=== PATIENT | male | born 1955 | race Caucasian/White ===

== ENCOUNTER → 2020-01-07 | Outpatient (CLI) | payer MEDICARE ==
--- NOTE | 2020-01-07 14:40 | Diagnostic Imaging Report ---
EXAMINATION: Right forearm at 01:14 p.m. INDICATION: Forearm pain. FINDINGS: AP and lateral views were obtained. There are no prior studies available for comparison. There is no fracture, dislocation, or acute bony abnormality evident. 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 There also appear to be a few minute radiopaque foreign bodies in the soft tissues along the volar aspect of the distal forearm. Furthermore, the lateral view does show a 0.8 x 3.4 cm soft tissue bulge along the posterior aspect of the proximal ulna. There is a similar-appearing 0.9 x 3.6 cm bulge along the posterior aspect of the olecranon process of the ulna. These soft tissue findings are not particularly well visualized on the AP view. If further study is desired, then I would recommend ultrasound be performed. There is no other soft tissue abnormality noted. IMPRESSION: 1. There is no evidence for an acute bony abnormality. 2. There are two minute radiopaque foreign bodies in the soft tissues along the volar aspect of the distal forearm. 3. The soft tissue nodular densities along the posterior aspect of the proximal forearm are of uncertain etiology. Ultrasound would be recommended to better characterize these findings. Dictated by: Dictated on workstation # [id number]
--- NOTE | 2020-01-07 14:41 | Diagnostic Imaging Report ---
EXAMINATION: Left shoulder at 01:11 p.m. INDICATION: Shoulder pain. FINDINGS: Two views were obtained. There are no prior studies available for comparison. There is no fracture, dislocation, or acute bony abnormality evident. 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 The soft tissues are unremarkable. IMPRESSION: There is no evidence for an acute bony abnormality. Dictated by: Dictated on workstation # [id number]
== END ==
LOC: RAD FS 12:37
PROVIDERS: ATTEND Nurse Practitioner Family
DX: M25.50 Pain in unspecified joint (principal)
CPT/HCPCS: 73030; 73090